=== PATIENT | male | born 1950 | race Caucasian/White ===

== ENCOUNTER 2016-07-20 20:25 | Emergency (ER) | payer BC ==
[~2016-07-20] VITALS: Ht 172.7 cm; Wt 100.5 kg
[~2016-07-20 20:25] MED LIST: ALDACTONE 25MG25 M1 PO; ASPIRIN 32325 MG/TA1 PO; ASPIRIN 81M81 MG/TA2 PO; COLACE 100100 MG/CAP PO; COUMADIN 6MG6 MG/TAB PO; CYMBALTA 30MG30 MG PO; CYMBALTA 60MG60 MG PO; DETROL LA4 PO; DEXILANT60 MG PO; ENBREL50 MG/ML SC; FLOMAX 0.40.4 MG/CAP PO; FLONASE NASAL S16 GM NS; IPRATROPIUM BROM3 M1 IH; LASIX 40MG TABL40 MG PO; LIPITOR 10MG10 MG PO; MOBIC15 MG PO; NORCO 325 MG-51 TAB PO; OSTEO-BI-FLEX 21 TAB PO; PRILOSEC 20MG20 MG PO; PULMICORT90 MCG/Act IH; Patient's Own Medication IH; RAPAFLO8 MG PO; REQUIP 1MG T1 MG/TAB PO; REQUIP2 MG PO; ROXICODONE 55 MG/TAB PO; RT ADVAIR 228 DISKUS IH; SINEMET 25/101 UDTAB PO; SYMMETREL100 M1 PO; TOPROL XL 25MG25 MG PO; TOPROL XL 50MG50 MG PO; TOVIAZ4 MG PO; TYLENOL ARTHRI650 M1 PO; VITAMIN C500 MG PO; VITAMIN D32000 IU PO; ZYRTEC 10MG10 MG PO; ZyrTEC PO
[2016-07-20 20:26] VITALS: BP 111/76; TEMP 98.1
[2016-07-20] MEDS ORDERED: ATROVENT NASAL15 ML NS (22:07)
[2016-07-20] MEDS ORDERED: ASPIRIN 81M81 MG/TA2 PO (22:08)
[2016-07-20] MEDS ORDERED: METAMUCIL3.4 GM/DOS PO (22:10)
[2016-07-20] MEDS ORDERED: MIRALAX119G (22:11)
[2016-07-20] MEDS ORDERED: WELLBUTRIN XL300 M1 PO (22:11)
[2016-07-20] MEDS ORDERED: MYRBETR50MG PO (22:12)
[2016-07-20] MEDS ORDERED: KLONOPIN 1MG1 MG PO (22:14)
[2016-07-20 22:34] VITALS: PULSE 83
== END 2016-07-20 22:35 | disposition home or self-care (01) ==
LOC: COL.ER 20:25
DX: S51.812A Laceration without foreign body of left forearm, initial encounter (principal)

== ENCOUNTER 2016-09-20 16:45 | Outpatient (RCR) | payer BC ==
[~2016-09-20 16:45] MED LIST changes: +ATROVENT NASAL15 ML NS; +KLONOPIN 1MG1 MG PO; +METAMUCIL3.4 GM/DOS PO; +MIRALAX119G; +MYRBETR50MG PO; +WELLBUTRIN XL300 M1 PO
[2016-09-26] MEDS ORDERED: MOBIC15 MG PO (11:49)
[2016-09-26] MEDS ORDERED: NUVIGIL150 MG PO ×2 (11:49→11:57)
[2016-09-26] MEDS ORDERED: LASIX 40MG TABL40 MG PO (11:50)
[2016-09-26] MEDS ORDERED: KLONOPIN 1MG1 MG PO (11:50)
[2016-09-26] MEDS ORDERED: PRILOSEC 20MG20 MG PO (11:50)
[2016-09-26] MEDS ORDERED: LIPITOR 10MG10 MG PO (11:51)
[2016-09-26] MEDS ORDERED: MYRBETR50MG PO (11:51)
[2016-09-26] MEDS ORDERED: WELLBUTRIN XL300 M1 PO (11:51)
[2016-09-26] MEDS ORDERED: SINEMET-25/251 UDTAB PO (11:52)
[2016-09-26] MEDS ORDERED: TOPROL XL 50MG50 MG PO (11:53)
[2016-09-26] MEDS ORDERED: ALDACTONE 25MG25 M1 PO (11:53)
[2016-09-26] MEDS ORDERED: CYMBALTA 30MG30 MG PO (11:54)
[2016-09-26] MEDS ORDERED: FLONASE NASAL S16 GM NS (11:54)
[2016-09-26] MEDS ORDERED: RAPAFLO4 MG PO (11:54)
[2016-09-26] MEDS ORDERED: RAPAFLO8 MG PO (11:54)
[2016-09-26] MEDS ORDERED: CYMBALTA 60MG60 MG PO (11:55)
[2016-09-26] MEDS ORDERED: ASPIRIN 81M81 MG/TA2 PO (11:55)
[2016-09-26] MEDS ORDERED: MIRALAX PA17 GM/Dose PO (11:56)
[2016-09-26] MEDS ORDERED: COLACE 100100 MG/CAP PO (11:56)
[2016-09-26] MEDS ORDERED: VITAMIN C500 MG PO ×2 (11:57→12:09)
[2016-09-26] MEDS ORDERED: METAMUCIL3.4 GM/DOS PO (12:06)
[2016-09-26] MEDS ORDERED: ZYRTEC 10MG10 MG PO (12:09)
[2016-09-26] MEDS ORDERED: OSTEO-BI-FLEX 21 TAB PO (12:09)
[2016-09-26] MEDS ORDERED: ENBREL50 MG/ML SC (12:10)
[2016-09-26] MEDS ORDERED: DESOWEN0.051 TOP (12:11)
[2016-09-26] MEDS ORDERED: MASON NATURAL2000 IU PO (12:12)
[2016-09-26] MEDS ORDERED: ATROVENT NASAL15 ML NS (12:12)
[2016-09-26] MEDS ORDERED: B-121000 MCG PO (12:13)
== END 2016-09-28 12:55 | disposition home or self-care (01) ==
LOC: WSPT 16:45
DX: G20 Parkinson's disease (principal)

== ENCOUNTER 2016-09-26 05:14 | Inpatient (IN) | payer BC ==
[~2016-09-26] VITALS: Ht 170.2 cm; Wt 95.7 kg
[2016-09-26 05:38] LABS: BASO # 0.1 (0.0-0.2); BASO % 0.5 % (0.0-2.0); EOS # 0.2 (0.0-0.7); EOS % 2.6 % (0-4.0); GRAN # 6.3 (1.4-6.5); HEMOGLOBIN 12.5 g/dl (13.5-18.0); LYMPH # 1.6 (1.2-3.4); LYMPH % 16.9 % (20.0-51.0); MEAN CELL VOLUME 94 fl (80.0-100.0); MEAN CORPUSCULAR HEMOGLOBIN 31 pg (27.0-31.0); MEAN CORPUSCULAR HGB CONC 33 g/dl (33.0-37.0); MEAN PLATELET VOLUME 12.2 fl (7.4-10.4); MONO % 10.7 % (1.7-9.3); PLATELET COUNT 154 K/mm3 (130-400); RED BLOOD COUNT 4.06 M/mm3 (4.20-5.60); REDCELL DISTRIBUTION WIDTH-CV 12.9 % (11.5-14.5); WHITE BLOOD COUNT 9.2 K/mm3 (4.8-10.8)
[2016-09-26 05:53] LABS: INR 1.3 (0.8-3.0); PROTHROMBIN TIME 14.7 SECONDS (9.7-12.8)
[2016-09-26 05:56] LABS: ADJUSTED CALCIUM 9.2 mg/dL (8.4-10.2); ALANINE AMINOTRANSFERASE 25 U/L (21-72); ALBUMIN 4.1 gm/dL (3.5-5.0); ALKALINE PHOSPHATASE 88 U/L (50-136); ANION GAP 12 mmol/L (7-16); BLOOD UREA NITROGEN 17 mg/dL (9-20); CALCIUM 9.3 mg/dL (8.4-10.2); CARBON DIOXIDE 32 mmol/L (22-30); CHLORIDE 97 mmol/L (98-107); CREATININE, serum 0.97 mg/dL (0.66-1.25); GLUCOSE 111 mg/dL (74-106); LIPASE 16 U/L (23-300); POTASSIUM 3.7 mmol/L (3.4-5.0); SODIUM 142 mmol/L (137-145); TOTAL PROTEIN 7.1 gm/dL (6.4-8.2)
[2016-09-26 06:00] LABS: VENOUS BLOOD GAS SITE VENIPUNCTURE
[2016-09-26 06:08] LABS: B-TYPE NATRIURETIC PEPTIDE 333 pg/mL (0-125)
[2016-09-26 06:11] LABS: TROPONIN-I < 0.012 ng/mL (0.000-0.034)
[2016-09-26 08:48] VITALS: BP 97/65; PULSE 44; TEMP 97.5
[2016-09-26 08:50] VITALS: BP 97/65; PULSE 44; TEMP 97.5
[2016-09-26 11:13] VITALS: BP 85/61; PULSE 100; TEMP 97.3
[2016-09-26] MEDS ORDERED: MOBIC15 MG PO (11:49)
[2016-09-26] MEDS ORDERED: NUVIGIL150 MG PO ×2 (11:49→11:57)
[2016-09-26] MEDS ORDERED: LASIX 40MG TABL40 MG PO (11:50)
[2016-09-26] MEDS ORDERED: KLONOPIN 1MG1 MG PO (11:50)
[2016-09-26] MEDS ORDERED: PRILOSEC 20MG20 MG PO (11:50)
[2016-09-26] MEDS ORDERED: LIPITOR 10MG10 MG PO (11:51)
[2016-09-26] MEDS ORDERED: MYRBETR50MG PO (11:51)
[2016-09-26] MEDS ORDERED: WELLBUTRIN XL300 M1 PO (11:51)
[2016-09-26] MEDS ORDERED: SINEMET-25/251 UDTAB PO (11:52)
[2016-09-26] MEDS ORDERED: TOPROL XL 50MG50 MG PO (11:53)
[2016-09-26] MEDS ORDERED: ALDACTONE 25MG25 M1 PO (11:53)
[2016-09-26] MEDS ORDERED: RAPAFLO8 MG PO (11:54)
[2016-09-26] MEDS ORDERED: FLONASE NASAL S16 GM NS (11:54)
[2016-09-26] MEDS ORDERED: CYMBALTA 30MG30 MG PO (11:54)
[2016-09-26] MEDS ORDERED: RAPAFLO4 MG PO (11:54)
[2016-09-26] MEDS ORDERED: CYMBALTA 60MG60 MG PO (11:55)
[2016-09-26] MEDS ORDERED: ASPIRIN 81M81 MG/TA2 PO (11:55)
[2016-09-26] MEDS ORDERED: COLACE 100100 MG/CAP PO (11:56)
[2016-09-26] MEDS ORDERED: MIRALAX PA17 GM/Dose PO (11:56)
[2016-09-26] MEDS ORDERED: VITAMIN C500 MG PO ×2 (11:57→12:09)
[2016-09-26] MEDS ORDERED: METAMUCIL3.4 GM/DOS PO (12:06)
[2016-09-26] MEDS ORDERED: ZYRTEC 10MG10 MG PO (12:09)
[2016-09-26] MEDS ORDERED: OSTEO-BI-FLEX 21 TAB PO (12:09)
[2016-09-26] MEDS ORDERED: ENBREL50 MG/ML SC (12:10)
[2016-09-26] MEDS ORDERED: DESOWEN0.051 TOP (12:11)
[2016-09-26] MEDS ORDERED: ATROVENT NASAL15 ML NS (12:12)
[2016-09-26] MEDS ORDERED: MASON NATURAL2000 IU PO (12:12)
[2016-09-26] MEDS ORDERED: B-121000 MCG PO (12:13)
[2016-09-26 15:46] VITALS: BP 87/53; PULSE 106; TEMP 97.8
[2016-09-26 21:09] VITALS: BP 100/67; PULSE 112; TEMP 98.3
[2016-09-26 23:00] VITALS: BP 94/71; PULSE 109; TEMP 98.3
[2016-09-27] VITALS (180 sets, daily range): BP systolic 92–108; BP diastolic 51–68; PULSE 96–102; TEMP 97–98; O2SAT 79–98
[2016-09-27 11:48] LABS: BASO % 0.4 % (0.0-2.0); EOS # 0.1 (0.0-0.7); EOS % 1.4 % (0-4.0); GRAN # 6.6 (1.4-6.5); LYMPH # 1.5 (1.2-3.4); LYMPH % 16.4 % (20.0-51.0); MEAN CELL VOLUME 98 fl (80.0-100.0); MEAN CORPUSCULAR HGB CONC 32 g/dl (33.0-37.0); MEAN PLATELET VOLUME 12.5 fl (7.4-10.4); MONO # 1.1 (0.1-0.6); MONO % 11.4 % (1.7-9.3); PLATELET COUNT 141 K/mm3 (130-400); RED BLOOD COUNT 2.96 M/mm3 (4.20-5.60); REDCELL DISTRIBUTION WIDTH-CV 13.2 % (11.5-14.5); WHITE BLOOD COUNT 9.4 K/mm3 (4.8-10.8)
[2016-09-27 11:52] LABS: HEMATOCRIT 28.9 % (42.0-52.0); HEMOGLOBIN 9.3 g/dl (13.5-18.0); MEAN CORPUSCULAR HEMOGLOBIN 31 pg (27.0-31.0)
[2016-09-28] VITALS (603 sets, daily range): BP systolic 99–123; BP diastolic 48–67; PULSE 81–96; TEMP 97.8–100; O2SAT 74–100
[2016-09-28 05:48] LABS: BASO % 0.4 % (0.0-2.0); EOS # 0.1 (0.0-0.7); EOS % 0.7 % (0-4.0); GRAN # 4.9 (1.4-6.5); GRAN % 72.6 % (42.2-75.2); LYMPH # 0.9 (1.2-3.4); LYMPH % 13.7 % (20.0-51.0); MEAN CELL VOLUME 100 fl (80.0-100.0); MEAN CORPUSCULAR HGB CONC 31 g/dl (33.0-37.0); MEAN PLATELET VOLUME 12.6 fl (7.4-10.4); MONO # 0.8 (0.1-0.6); MONO % 12.3 % (1.7-9.3); PLATELET COUNT 102 K/mm3 (130-400); RED BLOOD COUNT 2.34 M/mm3 (4.20-5.60); REDCELL DISTRIBUTION WIDTH-CV 13.2 % (11.5-14.5); WHITE BLOOD COUNT 6.7 K/mm3 (4.8-10.8)
[2016-09-28 05:57] LABS: HEMATOCRIT 23.4 % (42.0-52.0); HEMOGLOBIN 7.3 g/dl (13.5-18.0); MEAN CORPUSCULAR HEMOGLOBIN 31 pg (27.0-31.0)
[2016-09-28 06:09] LABS: ADJUSTED CALCIUM 9.2 mg/dL (8.4-10.2); ALBUMIN 3.1 gm/dL (3.5-5.0); BILIRUBIN,TOTAL 0.5 mg/dL (0.0-1.0); CALCIUM 8.5 mg/dL (8.4-10.2); CREATININE, serum 0.85 mg/dL (0.66-1.25); POTASSIUM 4.3 mmol/L (3.4-5.0); TOTAL PROTEIN 5.8 gm/dL (6.4-8.2)
[2016-09-28 14:20] LABS: ARTERIAL BLD GAS O2 SATURATION 94.9 % (92-100); ARTERIAL BLD GAS TCO2 CT 29.1; ARTERIAL BLOOD GAS BASE EXCESS 2.9 (-2-2); ARTERIAL BLOOD GAS HCO3 27.8 meq/L (22-26); ARTERIAL BLOOD GAS PHT 7.41 C (7.35-7.45); ARTERIAL BLOOD GAS PO2 76.9 mmHg (80-100); ARTERIAL BLOOD GAS PO2T 76.9 (80-100); ARTERIAL BLOOD GAS pH 7.41 (7.35-7.45)
[2016-09-28 14:21] LABS: ABG VENTILATOR TIDAL VOLUME 450 mL; ATS? NO
[2016-09-28 15:28] LABS: HEMATOCRIT 24.8 % (42.0-52.0); HEMOGLOBIN 8.1 g/dl (13.5-18.0)
[2016-09-28 22:43] LABS: HEMATOCRIT 25.2 % (42.0-52.0); HEMOGLOBIN 8.3 g/dl (13.5-18.0)
[2016-09-29] VITALS (1207 sets, daily range): BP systolic 101–121; BP diastolic 42–70; PULSE 73–86; TEMP 97–99.6; O2SAT 89–100
[2016-09-29 04:59] LABS: ARTERIAL BLD GAS O2 SATURATION 97.1 % (92-100); ARTERIAL BLD GAS TCO2 CT 28.3; ARTERIAL BLOOD GAS BASE EXCESS 3.9 (-2-2); ARTERIAL BLOOD GAS HCO3 27.2 meq/L (22-26); ARTERIAL BLOOD GAS PO2 103.4 mmHg (80-100); ARTERIAL BLOOD GAS PO2T 103.4 (80-100); OXYHEMOGLOBIN 96.2 %
[2016-09-29 05:01] LABS: ALLEN TEST YES; ALLENS TEST RESULT PASS; ATS? YES
[2016-09-29 05:30] LABS: BASO % 0.4 % (0.0-2.0); GRAN # 3.3 (1.4-6.5); GRAN % 65.4 % (42.2-75.2); LYMPH % 19.7 % (20.0-51.0); MEAN CORPUSCULAR HGB CONC 33 g/dl (33.0-37.0); MONO # 0.7 (0.1-0.6); MONO % 13.9 % (1.7-9.3); PLATELET COUNT 88 K/mm3 (130-400); REDCELL DISTRIBUTION WIDTH-CV 14.2 % (11.5-14.5)
[2016-09-29 05:33] LABS: HEMATOCRIT 24.4 % (42.0-52.0); MEAN CELL VOLUME 94 fl (80.0-100.0); MEAN CORPUSCULAR HEMOGLOBIN 31 pg (27.0-31.0)
[2016-09-29 05:43] LABS: ADJUSTED CALCIUM 9.4 mg/dL (8.4-10.2); ALBUMIN 2.7 gm/dL (3.5-5.0); BILIRUBIN,TOTAL 0.6 mg/dL (0.0-1.0); CALCIUM 8.4 mg/dL (8.4-10.2); CREATININE, serum 0.72 mg/dL (0.66-1.25); MAGNESIUM 1.8 mg/dL (1.6-2.3); PHOSPHOROUS 1.9 mg/dL (2.5-4.5); POTASSIUM 3.5 mmol/L (3.4-5.0); TOTAL PROTEIN 5.2 gm/dL (6.4-8.2)
[2016-09-29 15:13] LABS: HEMOGLOBIN 7.8 g/dl (13.5-18.0)
[2016-09-29 15:31] LABS: ARTERIAL BLD GAS O2 SATURATION 95.5 % (92-100); ARTERIAL BLD GAS TCO2 CT 26.3; ARTERIAL BLOOD GAS BASE EXCESS 0.4 (-2-2); ARTERIAL BLOOD GAS pH 7.41 (7.35-7.45); OXYHEMOGLOBIN 94.5 %
[2016-09-29 15:32] LABS: ATS? YES
[2016-09-29 18:06] LABS: BASO % 0.7 % (0.0-2.0); EOS # 0.1 (0.0-0.7); EOS % 2.2 % (0-4.0); GRAN # 2.6 (1.4-6.5); HEMATOCRIT 25.4 % (42.0-52.0); HEMOGLOBIN 8.4 g/dl (13.5-18.0); LYMPH # 0.9 (1.2-3.4); LYMPH % 21.8 % (20.0-51.0); MEAN CELL VOLUME 93 fl (80.0-100.0); MEAN CORPUSCULAR HEMOGLOBIN 31 pg (27.0-31.0); MEAN CORPUSCULAR HGB CONC 33 g/dl (33.0-37.0); MEAN PLATELET VOLUME 12.4 fl (7.4-10.4); MONO # 0.5 (0.1-0.6); MONO % 11.8 % (1.7-9.3); PLATELET COUNT 84 K/mm3 (130-400); RED BLOOD COUNT 2.72 M/mm3 (4.20-5.60); REDCELL DISTRIBUTION WIDTH-CV 14.2 % (11.5-14.5); WHITE BLOOD COUNT 4.2 K/mm3 (4.8-10.8)
[2016-09-29 18:14] LABS: MAGNESIUM 1.8 mg/dL (1.6-2.3); PHOSPHOROUS 4.4 mg/dL (2.5-4.5); POTASSIUM 4.5 mmol/L (3.4-5.0)
[2016-09-30] VITALS (652 sets, daily range): BP systolic 107–134; BP diastolic 53–67; PULSE 81–92; TEMP 97.8–99.4; O2SAT 92–100
[2016-09-30 00:20] LABS: BASO % 0.7 % (0.0-2.0); EOS # 0.2 (0.0-0.7); EOS % 3.6 % (0-4.0); GRAN # 2.7 (1.4-6.5); GRAN % 61.3 % (42.2-75.2); HEMOGLOBIN 8.2 g/dl (13.5-18.0); LYMPH % 21.5 % (20.0-51.0); MEAN CELL VOLUME 96 fl (80.0-100.0); MEAN CORPUSCULAR HEMOGLOBIN 30 pg (27.0-31.0); MEAN CORPUSCULAR HGB CONC 32 g/dl (33.0-37.0); MEAN PLATELET VOLUME 12.4 fl (7.4-10.4); MONO # 0.6 (0.1-0.6); MONO % 12.4 % (1.7-9.3); PLATELET COUNT 91 K/mm3 (130-400); RED BLOOD COUNT 2.72 M/mm3 (4.20-5.60); REDCELL DISTRIBUTION WIDTH-CV 14.3 % (11.5-14.5); WHITE BLOOD COUNT 4.4 K/mm3 (4.8-10.8)
[2016-09-30 05:28] LABS: ALLEN TEST YES; ALLENS TEST RESULT PASS; ARTERIAL BLD GAS O2 SATURATION 94.4 % (92-100); ARTERIAL BLD GAS TCO2 CT 30.3; ARTERIAL BLOOD GAS BASE EXCESS 1.9 (-2-2); ARTERIAL BLOOD GAS HCO3 28.6 meq/L (22-26); ARTERIAL BLOOD GAS PO2 81.1 mmHg (80-100); ARTERIAL BLOOD GAS pH 7.33 (7.35-7.45); ATS? YES
[2016-09-30 05:56] LABS: BASO % 0.5 % (0.0-2.0); EOS # 0.2 (0.0-0.7); GRAN # 2.5 (1.4-6.5); GRAN % 59.2 % (42.2-75.2); LYMPH % 24.1 % (20.0-51.0); MEAN CELL VOLUME 95 fl (80.0-100.0); MEAN CORPUSCULAR HGB CONC 32 g/dl (33.0-37.0); MEAN PLATELET VOLUME 12.1 fl (7.4-10.4); MONO # 0.5 (0.1-0.6); MONO % 11.3 % (1.7-9.3); PLATELET COUNT 94 K/mm3 (130-400); RED BLOOD COUNT 2.73 M/mm3 (4.20-5.60); REDCELL DISTRIBUTION WIDTH-CV 14.3 % (11.5-14.5); WHITE BLOOD COUNT 4.2 K/mm3 (4.8-10.8)
[2016-09-30 05:58] LABS: HEMOGLOBIN 8.4 g/dl (13.5-18.0); MEAN CORPUSCULAR HEMOGLOBIN 31 pg (27.0-31.0)
[2016-09-30 06:31] LABS: ADJUSTED CALCIUM 9.1 mg/dL (8.4-10.2); ALBUMIN 2.7 gm/dL (3.5-5.0); BILIRUBIN,TOTAL 0.4 mg/dL (0.0-1.0); CALCIUM 8.1 mg/dL (8.4-10.2); CREATININE, serum 0.66 mg/dL (0.66-1.25); MAGNESIUM 1.7 mg/dL (1.6-2.3); PHOSPHOROUS 3.8 mg/dL (2.5-4.5); POTASSIUM 3.6 mmol/L (3.4-5.0); TOTAL PROTEIN 5.2 gm/dL (6.4-8.2)
[2016-09-30 14:19] LABS: ARTERIAL BLD GAS O2 SATURATION 95.5 % (92-100); ARTERIAL BLD GAS TCO2 CT 32.8; ARTERIAL BLOOD GAS BASE EXCESS 5.7 (-2-2); ARTERIAL BLOOD GAS HCO3 31.3 meq/L (22-26); ARTERIAL BLOOD GAS PHT 7.41 C (7.35-7.45); ARTERIAL BLOOD GAS PO2 84.3 mmHg (80-100); ARTERIAL BLOOD GAS PO2T 84.3 (80-100); ARTERIAL BLOOD GAS pH 7.41 (7.35-7.45); ATS? YES; OXYHEMOGLOBIN 94.5 %
[2016-10-01] VITALS (973 sets, daily range): BP systolic 103–114; BP diastolic 59–67; PULSE 79–99; TEMP 97.7–98.4; O2SAT 92–100
[2016-10-01 05:19] LABS: BASO % 0.5 % (0.0-2.0); EOS # 0.3 (0.0-0.7); EOS % 5.6 % (0-4.0); GRAN # 2.7 (1.4-6.5); GRAN % 59.8 % (42.2-75.2); LYMPH # 0.9 (1.2-3.4); LYMPH % 20.8 % (20.0-51.0); MEAN CELL VOLUME 96 fl (80.0-100.0); MEAN CORPUSCULAR HGB CONC 32 g/dl (33.0-37.0); MEAN PLATELET VOLUME 12.1 fl (7.4-10.4); MONO # 0.6 (0.1-0.6); MONO % 12.6 % (1.7-9.3); PLATELET COUNT 108 K/mm3 (130-400); RED BLOOD COUNT 2.87 M/mm3 (4.20-5.60); REDCELL DISTRIBUTION WIDTH-CV 13.7 % (11.5-14.5); WHITE BLOOD COUNT 4.4 K/mm3 (4.8-10.8)
[2016-10-01 05:22] LABS: HEMATOCRIT 27.5 % (42.0-52.0); HEMOGLOBIN 8.8 g/dl (13.5-18.0); MEAN CORPUSCULAR HEMOGLOBIN 31 pg (27.0-31.0)
[2016-10-01 05:25] LABS: ARTERIAL BLD GAS O2 SATURATION 94.5 % (92-100); ARTERIAL BLD GAS TCO2 CT 32.6; ARTERIAL BLOOD GAS BASE EXCESS 4.6 (-2-2); ARTERIAL BLOOD GAS HCO3 30.9 meq/L (22-26); ARTERIAL BLOOD GAS PHT 7.38 C (7.35-7.45); ARTERIAL BLOOD GAS PO2 78.3 mmHg (80-100); ARTERIAL BLOOD GAS PO2T 78.3 (80-100); ARTERIAL BLOOD GAS pH 7.38 (7.35-7.45); OXYHEMOGLOBIN 93.8 %
[2016-10-01 05:26] LABS: ATS? YES
[2016-10-01 05:27] LABS: ALLEN TEST NO
[2016-10-01 05:29] LABS: ADJUSTED CALCIUM 9.3 mg/dL (8.4-10.2); ALBUMIN 2.5 gm/dL (3.5-5.0); BILIRUBIN,TOTAL 0.4 mg/dL (0.0-1.0); CALCIUM 8.1 mg/dL (8.4-10.2); CREATININE, serum 0.69 mg/dL (0.66-1.25); PHOSPHOROUS 3.5 mg/dL (2.5-4.5); POTASSIUM 3.7 mmol/L (3.4-5.0); TOTAL PROTEIN 5.1 gm/dL (6.4-8.2)
[2016-10-02] VITALS (886 sets, daily range): BP systolic 93–119; BP diastolic 59–75; PULSE 90–98; TEMP 97.4–99.2; O2SAT 94–98
[2016-10-02 04:00] LABS: ARTERIAL BLD GAS O2 SATURATION 94.7 % (92-100); ARTERIAL BLD GAS TCO2 CT 32.7; ARTERIAL BLOOD GAS BASE EXCESS 6.1 (-2-2); ARTERIAL BLOOD GAS HCO3 31.2 meq/L (22-26); ARTERIAL BLOOD GAS PHT 7.43 C (7.35-7.45); ARTERIAL BLOOD GAS PO2 76.1 mmHg (80-100); ARTERIAL BLOOD GAS PO2T 76.1 (80-100); ARTERIAL BLOOD GAS pH 7.43 (7.35-7.45); OXYHEMOGLOBIN 93.8 %
[2016-10-02 04:58] LABS: ALLEN TEST YES; ALLENS TEST RESULT PASS; ATS? YES
[2016-10-02 06:18] LABS: BASO % 0.3 % (0.0-2.0); EOS # 0.3 (0.0-0.7); EOS % 4.6 % (0-4.0); GRAN # 3.8 (1.4-6.5); GRAN % 62.6 % (42.2-75.2); LYMPH # 1.1 (1.2-3.4); LYMPH % 18.5 % (20.0-51.0); MEAN CELL VOLUME 96 fl (80.0-100.0); MEAN CORPUSCULAR HGB CONC 32 g/dl (33.0-37.0); MEAN PLATELET VOLUME 12.3 fl (7.4-10.4); MONO # 0.8 (0.1-0.6); MONO % 12.7 % (1.7-9.3); PLATELET COUNT 134 K/mm3 (130-400); RED BLOOD COUNT 3.12 M/mm3 (4.20-5.60); REDCELL DISTRIBUTION WIDTH-CV 13.5 % (11.5-14.5); WHITE BLOOD COUNT 6.1 K/mm3 (4.8-10.8)
[2016-10-02 06:28] LABS: ADJUSTED CALCIUM 9.4 mg/dL (8.4-10.2); ALBUMIN 2.8 gm/dL (3.5-5.0); BILIRUBIN,TOTAL 0.6 mg/dL (0.0-1.0); CALCIUM 8.4 mg/dL (8.4-10.2); CREATININE, serum 0.61 mg/dL (0.66-1.25); PHOSPHOROUS 3.2 mg/dL (2.5-4.5); TOTAL PROTEIN 5.6 gm/dL (6.4-8.2)
[2016-10-02 06:47] LABS: HEMATOCRIT 29.8 % (42.0-52.0); HEMOGLOBIN 9.6 g/dl (13.5-18.0); MEAN CORPUSCULAR HEMOGLOBIN 31 pg (27.0-31.0)
[2016-10-02 08:55] LABS: HEPARIN INDUCED ANTIBODY Negative (Negative)
[2016-10-03] VITALS (1039 sets, daily range): BP systolic 97–114; BP diastolic 61–74; PULSE 88–100; TEMP 97.4–98.7; O2SAT 66–100
[2016-10-03 05:49] LABS: ARTERIAL BLD GAS O2 SATURATION 93.6 % (92-100); ARTERIAL BLD GAS TCO2 CT 36.8; ARTERIAL BLOOD GAS BASE EXCESS 9.6 (-2-2); ARTERIAL BLOOD GAS HCO3 35.2 meq/L (22-26); ARTERIAL BLOOD GAS PHT 7.44 C (7.35-7.45); ARTERIAL BLOOD GAS PO2 69.8 mmHg (80-100); ARTERIAL BLOOD GAS PO2T 69.8 (80-100); ARTERIAL BLOOD GAS pH 7.44 (7.35-7.45); OXYHEMOGLOBIN 92.9 %
[2016-10-03 06:06] LABS: ALLEN TEST YES; ALLENS TEST RESULT PASS; ATS? YES
[2016-10-03 06:51] LABS: MEAN CELL VOLUME 94 fl (80.0-100.0); MEAN CORPUSCULAR HGB CONC 32 g/dl (33.0-37.0); MEAN PLATELET VOLUME 12.2 fl (7.4-10.4); PLATELET COUNT 129 K/mm3 (130-400); RED BLOOD COUNT 3.13 M/mm3 (4.20-5.60); REDCELL DISTRIBUTION WIDTH-CV 13.2 % (11.5-14.5); WHITE BLOOD COUNT 6.4 K/mm3 (4.8-10.8)
[2016-10-03 06:53] LABS: ADJUSTED CALCIUM 9.4 mg/dL (8.4-10.2); ALBUMIN 2.9 gm/dL (3.5-5.0); BILIRUBIN,TOTAL 0.5 mg/dL (0.0-1.0); CALCIUM 8.5 mg/dL (8.4-10.2); CREATININE, serum 0.64 mg/dL (0.66-1.25); PHOSPHOROUS 3.3 mg/dL (2.5-4.5); POTASSIUM 3.7 mmol/L (3.4-5.0); TOTAL PROTEIN 5.8 gm/dL (6.4-8.2)
[2016-10-03 07:05] LABS: HEMATOCRIT 29.4 % (42.0-52.0); HEMOGLOBIN 9.5 g/dl (13.5-18.0); MEAN CORPUSCULAR HEMOGLOBIN 30 pg (27.0-31.0)
[2016-10-03 07:07] LABS: ADD PATHOLOGY DIFF REVIEW NO
[2016-10-03 14:30] LABS: BAND 15 % (0-10); EOSINOPHIL 5 % (0-4); MYELOCYTE 1 % (0-0); NEUTROPHILS 51 % (42.0-75.2); TOTAL CELLS COUNTED 100
[2016-10-03 14:31] LABS: PLATELET ESTIMATE NORMAL (NORMAL)
[2016-10-04] VITALS (1016 sets, daily range): BP systolic 109–123; BP diastolic 70–84; PULSE 85–107; TEMP 96.9–99.5; O2SAT 89–100
[2016-10-04 04:49] LABS: MEAN CELL VOLUME 92 fl (80.0-100.0); MEAN CORPUSCULAR HGB CONC 33 g/dl (33.0-37.0); MEAN PLATELET VOLUME 11.9 fl (7.4-10.4); PLATELET COUNT 146 K/mm3 (130-400); RED BLOOD COUNT 3.36 M/mm3 (4.20-5.60); WHITE BLOOD COUNT 7.2 K/mm3 (4.8-10.8)
[2016-10-04 05:09] LABS: ADJUSTED CALCIUM 9.7 mg/dL (8.4-10.2); BILIRUBIN,TOTAL 0.5 mg/dL (0.0-1.0); CALCIUM 8.9 mg/dL (8.4-10.2); CREATININE, serum 0.62 mg/dL (0.66-1.25); POTASSIUM 3.8 mmol/L (3.4-5.0)
[2016-10-04 05:25] LABS: ALLEN TEST YES; ALLENS TEST RESULT PASS; ARTERIAL BLD GAS O2 SATURATION 93.8 % (92-100); ARTERIAL BLD GAS TCO2 CT 31.7; ARTERIAL BLOOD GAS BASE EXCESS 6.8 (-2-2); ARTERIAL BLOOD GAS HCO3 30.5 meq/L (22-26); ARTERIAL BLOOD GAS PO2 67.8 mmHg (80-100); ARTERIAL BLOOD GAS PO2T 67.8 (80-100); ATS? YES
[2016-10-04 05:28] LABS: ADD PATHOLOGY DIFF REVIEW NO; HEMOGLOBIN 10.2 g/dl (13.5-18.0); MEAN CORPUSCULAR HEMOGLOBIN 30 pg (27.0-31.0)
[2016-10-04 05:38] LABS: MAGNESIUM 1.9 mg/dL (1.6-2.3)
[2016-10-04 06:07] LABS: BAND 26 % (0-10); EOSINOPHIL 3 % (0-4); METAMYELOCYTE 1 % (0-0); NEUTROPHILS 48 % (42.0-75.2); PLATELET ESTIMATE NORMAL (NORMAL); TOTAL CELLS COUNTED 100
[2016-10-05] VITALS (778 sets, daily range): BP systolic 99–116; BP diastolic 62–77; PULSE 79–106; TEMP 96.8–98.8; O2SAT 62–100
[2016-10-05 05:20] LABS: ARTERIAL BLD GAS O2 SATURATION 93.2 % (92-100); ARTERIAL BLD GAS TCO2 CT 35.2; ARTERIAL BLOOD GAS BASE EXCESS 6.6 (-2-2); ARTERIAL BLOOD GAS HCO3 33.4 meq/L (22-26); ARTERIAL BLOOD GAS PHT 7.37 C (7.35-7.45); ARTERIAL BLOOD GAS PO2 72.4 mmHg (80-100); ARTERIAL BLOOD GAS PO2T 72.4 (80-100); ARTERIAL BLOOD GAS pH 7.37 (7.35-7.45); OXYHEMOGLOBIN 92.4 %
[2016-10-05 05:21] LABS: ALLEN TEST NO; ATS? YES
[2016-10-05 05:43] LABS: BASO % 0.4 % (0.0-2.0); EOS # 0.4 (0.0-0.7); EOS % 5.2 % (0-4.0); GRAN # 4.1 (1.4-6.5); GRAN % 58.8 % (42.2-75.2); LYMPH # 1.2 (1.2-3.4); LYMPH % 17.1 % (20.0-51.0); MEAN CELL VOLUME 93 fl (80.0-100.0); MEAN CORPUSCULAR HGB CONC 33 g/dl (33.0-37.0); MEAN PLATELET VOLUME 12.2 fl (7.4-10.4); MONO # 1.1 (0.1-0.6); PLATELET COUNT 157 K/mm3 (130-400); RED BLOOD COUNT 3.54 M/mm3 (4.20-5.60); REDCELL DISTRIBUTION WIDTH-CV 12.9 % (11.5-14.5); WHITE BLOOD COUNT 7.1 K/mm3 (4.8-10.8)
[2016-10-05 05:44] LABS: HEMATOCRIT 32.9 % (42.0-52.0); HEMOGLOBIN 10.7 g/dl (13.5-18.0); MEAN CORPUSCULAR HEMOGLOBIN 30 pg (27.0-31.0)
[2016-10-05 06:09] LABS: ALBUMIN 3.4 gm/dL (3.5-5.0); CALCIUM 9.1 mg/dL (8.4-10.2); CREATININE, serum 0.54 mg/dL (0.66-1.25); MAGNESIUM 2.2 mg/dL (1.6-2.3); POTASSIUM 3.7 mmol/L (3.4-5.0)
[2016-10-06] VITALS (499 sets, daily range): BP systolic 92–119; BP diastolic 50–67; PULSE 58–109; TEMP 97.5–98.4; O2SAT 70–100
[2016-10-06 05:33] LABS: BASO # 0.1 (0.0-0.2); BASO % 0.5 % (0.0-2.0); EOS # 0.4 (0.0-0.7); EOS % 4.5 % (0-4.0); GRAN # 5.6 (1.4-6.5); GRAN % 61.3 % (42.2-75.2); HEMATOCRIT 33.2 % (42.0-52.0); HEMOGLOBIN 10.8 g/dl (13.5-18.0); LYMPH # 1.6 (1.2-3.4); MEAN CELL VOLUME 93 fl (80.0-100.0); MEAN CORPUSCULAR HEMOGLOBIN 30 pg (27.0-31.0); MEAN CORPUSCULAR HGB CONC 33 g/dl (33.0-37.0); MEAN PLATELET VOLUME 12.3 fl (7.4-10.4); MONO # 1.2 (0.1-0.6); MONO % 13.3 % (1.7-9.3); PLATELET COUNT 179 K/mm3 (130-400); RED BLOOD COUNT 3.57 M/mm3 (4.20-5.60); WHITE BLOOD COUNT 9.1 K/mm3 (4.8-10.8)
[2016-10-06 05:41] LABS: ALBUMIN 3.5 gm/dL (3.5-5.0); CALCIUM 9.2 mg/dL (8.4-10.2); CREATININE, serum 0.69 mg/dL (0.66-1.25); MAGNESIUM 2.2 mg/dL (1.6-2.3); POTASSIUM 3.9 mmol/L (3.4-5.0)
[2016-10-07 04:38] VITALS: BP 104/65; PULSE 98; TEMP 97.6
[2016-10-07 07:39] LABS: MAGNESIUM 2.4 mg/dL (1.6-2.3); POTASSIUM 3.6 mmol/L (3.4-5.0)
[2016-10-07 07:48] VITALS: BP 107/63; PULSE 97; TEMP 99
[2016-10-07] MEDS ORDERED: TOPROL XL 25MG25 MG PO (11:28)
[2016-10-07] MEDS ORDERED: SINGULAIR 110 MG/TAB PO (11:30)
[2016-10-07] MEDS ORDERED: PROAIR HFA0.09 MG/AC IH (11:34)
[2016-10-07 12:11] VITALS: BP 101/73; PULSE 109; TEMP 98.4
[2016-10-16 10:02] LABS: ALK PHOS ISOENZYME XXX; ALK PHOS ISOENZYME - TOTAL XXX
== END 2016-10-07 13:00 | disposition home or self-care (01) | DRG 163 ==
LOC: COL.ER 05:14 → ICU 06:56 → MEDICAL 06:56 → ICU 09-27 17:52 → IMCU 09-27 18:12 → ICU 09-28 12:37 → MEDICAL 10-06 10:54
PROVIDERS: Anesthesiology Critical Care Medicine; Emergency Medicine; Internal Medicine; Internal Medicine Pulmonary Disease; Surgery
PROC: 0W993ZZ Drainage of Right Pleural Cavity, Percutaneous Approach (ICD-10-PCS; 2016-09-27)
PROC: 0W9940Z Drainage of Right Pleural Cavity with Drainage Device, Percutaneous Endoscopic Approach (ICD-10-PCS; 2016-09-28)
PROC: 0BJ Respiratory System, Inspection (ICD-10-PCS; 2016-09-28)
PROC: 5A1955Z Respiratory Ventilation, Greater than 96 Consecutive Hours (ICD-10-PCS; 2016-09-28)
PROC: 0BCN4ZZ Extirpation of Matter from Right Pleura, Percutaneous Endoscopic Approach (ICD-10-PCS; principal; 2016-09-28 10:30)
PROC: 0B968ZZ Drainage of Right Lower Lobe Bronchus, Via Natural or Artificial Opening Endoscopic (ICD-10-PCS; 2016-10-04)
PROC: 0B9B8ZZ Drainage of Left Lower Lobe Bronchus, Via Natural or Artificial Opening Endoscopic (ICD-10-PCS; 2016-10-04)
DX: S27.1XXA Traumatic hemothorax, initial encounter (principal); J96.01 Acute respiratory failure with hypoxia; S22.41XA Multiple fractures of ribs, right side, initial encounter for closed fracture; J90 Pleural effusion, not elsewhere classified; I50.32 Chronic diastolic (congestive) heart failure; D62 Acute posthemorrhagic anemia; E46 Unspecified protein-calorie malnutrition; J98.11 Atelectasis; Z66 Do not resuscitate; W18.30XA Fall on same level, unspecified, initial encounter; G20 Parkinson's disease; Z95.2 Presence of prosthetic heart valve; D69.6 Thrombocytopenia, unspecified
CPT/HCPCS: 99223-AI; 99232-AI; 99233-AI; 99239; A7048; C1751; C9113; J0456; J0696; J1100; J1644; J1815; J1940; J1956; J2250; J2270; J2405; J2704; J2710; J3010; J3475; J3480; J7030; J7050; P9016; Q9967

== ENCOUNTER 2016-10-07 19:06 | Observation (INO) | payer BC ==
[~2016-10-07] VITALS: Ht 175.3 cm; Wt 102.3 kg
[~2016-10-07 19:06] MED LIST changes: +B-121000 MCG PO; +DESOWEN0.051 TOP; +MASON NATURAL2000 IU PO; +MIRALAX PA17 GM/Dose PO; +NUVIGIL150 MG PO; +PROAIR HFA0.09 MG/AC IH; +RAPAFLO4 MG PO; +SINEMET-25/251 UDTAB PO; +SINGULAIR 110 MG/TAB PO
[2016-10-07 19:42] LABS: BASO # 0.1 (0.0-0.2); BASO % 0.5 % (0.0-2.0); EOS # 0.2 (0.0-0.7); EOS % 1.6 % (0-4.0); GRAN # 9.8 (1.4-6.5); GRAN % 74.6 % (42.2-75.2); LYMPH # 1.5 (1.2-3.4); LYMPH % 11.6 % (20.0-51.0); MEAN CELL VOLUME 90 fl (80.0-100.0); MEAN CORPUSCULAR HEMOGLOBIN 30 pg (27.0-31.0); MEAN CORPUSCULAR HGB CONC 33 g/dl (33.0-37.0); MONO # 1.3 (0.1-0.6); MONO % 10.2 % (1.7-9.3); PLATELET COUNT 205 K/mm3 (130-400); WHITE BLOOD COUNT 13.1 K/mm3 (4.8-10.8)
[2016-10-07 19:43] LABS: HEMATOCRIT 36.1 % (42.0-52.0)
[2016-10-07 19:49] LABS: PH 5 (5-8); SQUAMOUS EPITHELIAL None Seen /hpf; URINE APPEARANCE Hazy; URINE BACTERIA None Seen /hpf; URINE BILIRUBIN Negative (NEGATIVE); URINE BLOOD Negative (NEGATIVE); URINE COLOR Yellow; URINE GLUCOSE Negative (NEGATIVE); URINE KETONE Trace (NEGATIVE); URINE UROBILINOGEN Negative (NEGATIVE)
[2016-10-07 19:53] LABS: ADJUSTED CALCIUM 9.3 mg/dL (8.4-10.2); ALANINE AMINOTRANSFERASE 19 U/L (21-72); ALKALINE PHOSPHATASE 106 U/L (50-136); ANION GAP 13 mmol/L (7-16); BILIRUBIN,TOTAL 0.7 mg/dL (0.0-1.0); BLOOD UREA NITROGEN 32 mg/dL (9-20); CALCIUM 9.3 mg/dL (8.4-10.2); CARBON DIOXIDE 31 mmol/L (22-30); CHLORIDE 94 mmol/L (98-107); CREATININE, serum 0.84 mg/dL (0.66-1.25); GLUCOSE 129 mg/dL (74-106); LIPASE 30 U/L (23-300); POTASSIUM 3.8 mmol/L (3.4-5.0); SODIUM 137 mmol/L (137-145); TOTAL PROTEIN 7.4 gm/dL (6.4-8.2)
[2016-10-07 20:05] LABS: B-TYPE NATRIURETIC PEPTIDE 333 pg/mL (0-125); TROPONIN-I < 0.012 ng/mL (0.000-0.034)
[2016-10-07 22:50] VITALS: BP 111/66; PULSE 94; TEMP 98.3
[2016-10-08 00:26] VITALS: BP 110/64; PULSE 95; TEMP 98.3
[2016-10-08 03:13] VITALS: BP 108/63; PULSE 93; TEMP 98.4
[2016-10-08 07:32] VITALS: BP 98/61; PULSE 93; TEMP 98.9
[2016-10-08 11:30] VITALS: BP 100/63; PULSE 101
[2016-10-08 14:14] VITALS: BP 100/63; PULSE 101; TEMP 98.9
[2016-10-08 15:03] VITALS: BP 108/67; PULSE 95; TEMP 98.2
== END 2016-10-08 18:12 ==
LOC: COL.ER 19:06 → MEDICAL 22:03
PROVIDERS: Emergency Medicine
DX: R53.81 Other malaise (principal); G20 Parkinson's disease; J94.2 Hemothorax; D69.6 Thrombocytopenia, unspecified; Z91.81 History of falling; Z66 Do not resuscitate
CPT/HCPCS: 99232-AI; G0378; J7030

== ENCOUNTER 2016-10-08 15:05 | Inpatient (IN) | payer BC ==
[~2016-10-08] VITALS: Ht 175.3 cm; Wt 85.0 kg
[2016-10-08 21:43] VITALS: BP 96/64; PULSE 91; TEMP 97.2
[2016-10-09 05:00] VITALS: BP 98/58; PULSE 68; TEMP 97.1
[2016-10-09 05:12] VITALS: BP 98/58; PULSE 68; TEMP 97.1
[2016-10-09 17:17] VITALS: BP 95/63; PULSE 94; TEMP 9735
[2016-10-10 06:27] VITALS: BP 99/57; PULSE 81; TEMP 97.2
[2016-10-10 16:15] VITALS: BP 108/62; PULSE 92; TEMP 97.4
[2016-10-11 05:06] VITALS: BP 95/60; PULSE 87; TEMP 98.4
[2016-10-11 17:37] VITALS: BP 106/65; PULSE 99; TEMP 97.8
[2016-10-12 04:00] VITALS: BP 116/62; PULSE 93; TEMP 98.1
[2016-10-12 14:35] VITALS: BP 120/69
[2016-10-12 16:37] VITALS: BP 104/58; PULSE 96; TEMP 97.4
[2016-10-13 04:10] VITALS: BP 98/57; PULSE 96; TEMP 97.7
[2016-10-13 17:14] VITALS: BP 136/79; PULSE 90; TEMP 97.1
[2016-10-14 04:03] VITALS: BP 110/60; PULSE 87; TEMP 98
[2016-10-14 15:47] VITALS: BP 99/62; PULSE 100; TEMP 98
[2016-10-14 21:00] VITALS: BP 106/71; PULSE 105; TEMP 99.3
[2016-10-15 05:05] VITALS: BP 104/61; PULSE 83; TEMP 98
[2016-10-15 11:06] VITALS: BP 102/64; PULSE 89
[2016-10-15 18:17] VITALS: BP 105/54; PULSE 98; TEMP 97.7
[2016-10-16 05:00] VITALS: BP 118/70; PULSE 77; TEMP 97.9
[2016-10-16 18:07] VITALS: BP 113/68; PULSE 102; TEMP 96.9
[2016-10-17 05:40] VITALS: BP 101/63; PULSE 87; TEMP 97.8
[2016-10-17 16:21] VITALS: BP 122/68; PULSE 106; TEMP 97.7
[2016-10-18 04:51] VITALS: BP 111/67; PULSE 91; TEMP 98.2
[2016-10-18 18:00] VITALS: BP 118/71; PULSE 104; TEMP 98.4
[2016-10-19 05:20] VITALS: BP 109/62; PULSE 83; TEMP 98.2
[2016-10-19 07:14] LABS: BASO # 0.1 (0.0-0.2); BASO % 0.6 % (0.0-2.0); EOS # 0.1 (0.0-0.7); GRAN # 4.7 (1.4-6.5); GRAN % 60.3 % (42.2-75.2); LYMPH # 2.1 (1.2-3.4); LYMPH % 26.5 % (20.0-51.0); MEAN CELL VOLUME 94 fl (80.0-100.0); MEAN CORPUSCULAR HGB CONC 31 g/dl (33.0-37.0); MEAN PLATELET VOLUME 11.6 fl (7.4-10.4); MONO # 0.9 (0.1-0.6); PLATELET COUNT 177 K/mm3 (130-400); RED BLOOD COUNT 3.38 M/mm3 (4.20-5.60); REDCELL DISTRIBUTION WIDTH-CV 13.5 % (11.5-14.5); WHITE BLOOD COUNT 7.7 K/mm3 (4.8-10.8)
[2016-10-19 07:17] LABS: HEMATOCRIT 31.9 % (42.0-52.0); MEAN CORPUSCULAR HEMOGLOBIN 30 pg (27.0-31.0)
[2016-10-19 07:29] LABS: CALCIUM 8.8 mg/dL (8.4-10.2); CREATININE, serum 0.66 mg/dL (0.66-1.25); POTASSIUM 3.6 mmol/L (3.4-5.0)
[2016-10-19 18:37] VITALS: BP 109/74; PULSE 94; TEMP 97.6
[2016-10-20 03:14] VITALS: BP 104/61; PULSE 89; TEMP 97
[2016-10-20 17:45] VITALS: BP 103/60; PULSE 94; TEMP 97.6
[2016-10-21 05:11] VITALS: BP 112/71; PULSE 78; TEMP 96.8
[2016-10-21 11:21] VITALS: BP 113/71
[2016-10-21 17:31] VITALS: BP 110/57; PULSE 105; TEMP 98
[2016-10-22 05:06] VITALS: BP 106/69; PULSE 84; TEMP 97.4
[2016-10-22 06:38] VITALS: BP 108/66; PULSE 85
[2016-10-22 18:10] VITALS: BP 108/66; PULSE 105; TEMP 98.4
[2016-10-23 07:04] VITALS: BP 99/65; PULSE 84; TEMP 97.4
[2016-10-23 15:07] VITALS: BP 104/52; PULSE 98; TEMP 98
[2016-10-24 05:12] VITALS: BP 108/67; PULSE 72; TEMP 98.2
[2016-10-24 16:30] VITALS: BP 103/62; PULSE 97; TEMP 98
[2016-10-25 05:57] VITALS: BP 103/55; PULSE 85; TEMP 97.5
[2016-10-25 16:21] VITALS: BP 100/59; PULSE 98; TEMP 97.5
[2016-10-26 02:32] VITALS: BP 96/68; PULSE 89; TEMP 97.6
[2016-10-26 04:59] VITALS: BP 108/68
[2016-10-26 17:08] VITALS: BP 96/65; PULSE 104; TEMP 97.8
[2016-10-26 23:09] VITALS: BP 112/68; PULSE 100
[2016-10-27 06:47] VITALS: BP 104/68; PULSE 84; TEMP 97.8
[2016-10-27 15:59] VITALS: BP 101/61; PULSE 98; TEMP 98.2
[2016-10-28 06:30] VITALS: BP 99/63; PULSE 84; TEMP 99
[2016-10-28 18:00] VITALS: BP 95/60; PULSE 96; TEMP 98.2
[2016-10-29 06:30] VITALS: BP 116/74; PULSE 83; TEMP 97.2
[2016-10-29 15:54] VITALS: BP 99/60; PULSE 95; TEMP 97.8
[2016-10-30 04:07] VITALS: BP 103/67; PULSE 95; TEMP 97.3
== END 2016-10-30 17:32 | disposition home health service (06) | DRG 91 ==
PROVIDERS: Internal Medicine
DX: G72.81 Critical illness myopathy (principal); J96.01 Acute respiratory failure with hypoxia; E46 Unspecified protein-calorie malnutrition; J94.2 Hemothorax; I50.32 Chronic diastolic (congestive) heart failure; G20 Parkinson's disease; R13.10 Dysphagia, unspecified; R62.7 Adult failure to thrive; D64.9 Anemia, unspecified; G47.33 Obstructive sleep apnea (adult) (pediatric); R33.9 Retention of urine, unspecified
CPT/HCPCS: 99222-AI; 99232-AI; 99233-AI; 99239; A9284; J7512